=== PATIENT | female | born 1980 | race Caucasian/White ===

== ENCOUNTER 2023-08-06 21:09 | Emergency (ER) | payer BC, SELFPAY ==
[2023-08-06 21:11] VITALS: BP 154/101
[2023-08-06 21:33] LABS: % Basophils 0.7 % (0-2); % Eosinophils 1.9 % (0-6); % Immature Granulocytes 0.7 % (0-0.5); % Lymphocytes 36.6 % (20.5-51.1); % Monocytes 10.6 % (1.7-9.3); % Neutrophils 49.5 % (42.2-75.2); Absolute Basophils 0.1 10^3/uL (0-0.2); Absolute Eosinophils 0.2 10^3/uL (0-0.7); Absolute Immature Granulocytes 0.1 10^3/uL (0-0.05); Absolute Lymphocytes 3.3 10^3/uL (1.2-3.4); Absolute Neutrophils 4.5 10^3/uL (1.4-6.5); Hematocrit 38.6 % (37.0-47.0); Mean Corp Hgb Conc. 36.3 g/dL (33.0-37.0); Mean Corpuscular Hgb 30.3 pg (27.0-31.0); Mean Corpuscular Volume 83.5 fL (81.0-99.0); Mean Platelet Volume 9.6 fL (7.4-10.4); Nucleated Red Blood Cells % 0 %; Platelet Count 193 10^3/uL (130-400); Red Blood Cell Count 4.62 10^6/uL (4.20-5.40); Red Cell Dist. Width 12.4 % (11.5-14.5)
[2023-08-06 21:50] LABS: HCG, Serum Qualitative Screen Negative
[2023-08-06 22:01] LABS: ALT (SGPT) 44 U/L (0-35); AST (SGOT) 35 U/L (14-36); Albumin 4.6 g/dl (3.5-5.0); Alkaline Phosphatase 59 U/L (38-126); Blood Urea Nitrogen 28 mg/dl (7-17); Calcium 9.9 mg/dl (8.4-10.2); Carbon Dioxide 25 mmol/L (22-30); Glucose 91 mg/dl (70-99); Total Bilirubin 0.8 mg/dl (0.2-1.3); Total Protein 7.2 g/dl (6.3-8.2); eGFR 52.98
[2023-08-06 22:17] LABS: Potassium 4.4 mmol/L (3.5-5.1); Sodium 135 mmol/L (135-145)
[2023-08-06 22:18] LABS: Chloride 101 mmol/L (98-107)
--- NOTE | 2023-08-07 00:03 | ED.GENMED ---
History of Present Illness
General
Chief Complaint: Headache
Source: patient
Exam Limitations: none
Time Seen by Provider: 08/06/23 23:29
Travel History
Have you had any contact with someone who has COVID-19?: No
Do you have any symptoms of coronavirus? Fever > 100 degrees, chills, cough, shortness of breath, sore throat, loss of taste or smell, muscle aches, or headache?: No
History of Present Illness
History of Present Illness:
This is a 43 year old female that comes in with c/o Hypertension. States that last night she started to feel like her BP was elevated. States that today she started with a headache and had pressure in the back of her head. States that it felt like a
migraine so she took her migraine medication. States that her headache went away a little but she was worried about her BP. States that her fingers and toes felt a little numb. States that she also had some mid chest discomfort, dizziness and
nausea. Denies any fever, chills, SOB, abd pain, vomiting, diarrhea, urinary burning.
Past History
Past History
ED Past Medical History: HTN, Hypercholesterolemia, Psychiatric (Bipolar) and Other (Migraine)
ED Past Surgical History: and Gynecological (Uterine tumor removed)
Social History
Tobacco: Former smoker
Alcohol: None
Personal:
Living: with family
Review of Systems
Review of Systems
All Other Systems: ROS reviewed and negative except as documented in HPI and ROS
Constitutional: Reports no symptoms; Denies fever or chills
EENT: Reports no symptoms
Respiratory: Reports no symptoms; Denies cough or trouble breathing
Cardiac: Reports chest pain
ABD/GI: Reports nausea; Denies abdominal pain, vomiting or diarrhea
: Reports no symptoms; Denies dysuria, frequency or urgency
Musculoskeletal: Reports no symptoms
Skin: Reports no symptoms
Neurological: Reports dizzy and headache
Psychiatric: Reports no symptoms
Phy Exam
General Physical Exam
General Presentation: well appearing and no apparent distress
General age: appears stated age
General Skin: warm and dry
General Habitus: normal
General Mental: alert
General Hydration: appears well hydrated
ENT Exam
ENT Exam: TM's normal, pharynx normal and neck supple
Eye Exam
Eye Exam: EOMI
Cardiovascular Exam
Cardiovascular Exam: regular rate/rhythm, no edema and normal peripheral pulses
Pulmonary Exam
Pulmonary Exam: lungs clear, no respiratory distress, no rales, chest non tender, no crackles, no rhonchi, no wheezing and no cough
Gastrointestinal Exam
Gastrointestinal Exam: normal bowel sounds, non tender, soft, no organomegaly, no pulsatile mass and non distended
Musculoskeletal Exam
Musculoskeletal Exam: full ROM and no edema
Skin Exam
Skin Exam: normal color, warm/dry, no rash and no petechia
Psychiatric Exam
Psychiatric Exam: normal mood/affect
Course
Orders/Labs/Results
Orders:
Orders
08/06/23 21:14
Test Result ONCE
08/06/23 21:24
Complete Blood Count/With Diff Urgent
Comprehensive Metabolic Panel Urgent
HCG, Serum Qualitative Screen Urgent
08/07/23 00:02
0.9% Sodium Chloride 1000 ml [Nss] 1,000 ml IV BOLUS
Acetaminophen 1000MG/100Ml [Ofirmev] 1,000 mg in 100 ml IV ONCE
Acetaminophen IV Indication:: ED Narcotic Naive Pt-ONCE
08/07/23 00:03
Ondansetron Injectable [Zofran] 4 mg IV NOW STA
08/07/23 00:08
Electrocardiogram (*1) Urgent
Reason for Study: Chest Pain
EKG- Treatment ONCE
08/07/23 00:30
Troponin I Urgent
Abnormal Lab Results
08/06/23
21:24
Abs Immat Gran (auto) 0.1 H 10^3/uL
(0-0.05)
Absolute Monos (auto) 1.0 H 10^3/uL
(0.1-0.6)
Immature Gran % 0.7 H %
(0-0.5)
Monocytes % 10.6 H %
(1.7-9.3)
BUN 28 H mg/dl
(7-17)
Creatinine 1.3 H mg/dL
(0.6-1.0)
ALT 44 H U/L
(0-35)
08/06/23 21:24
08/06/23 21:24
Dehydration. ALT slightly elevated. HCG negative. Troponin <0.012,
Vital Signs
Initial and Last Documented VS:
Initial Vital Signs
Temp Pulse Resp BP Pulse Ox
98.1 F 85 16 154/101 98
08/06/23 21:11 08/06/23 21:11 08/06/23 21:11 08/06/23 21:11 08/06/23 21:11
Last Documented Vital Signs
Temp Pulse Resp BP Pulse Ox
98.1 F 78 19 144/94 97
08/06/23 21:11 08/07/23 00:26 08/07/23 00:26 08/07/23 00:26 08/07/23 00:26
MDM/Problems Addressed
Differential Diagnosis Includes:
Hypertension. Migraine
MDM/Problems Addressed:
This is a 43 year old female that comes in with c/o hypertension. States that she took her Losatin this morning. States that this started last night and know she has pressure in the back of her head with numbness in her fingers and toes.
Will get labs, Medicated for headache pain and treat BP as needed.
Back into see patient. States that she is feeling better. BP is 135/87. Encouraged patient to increase her water intake. Use her Migraine medication as needed. Follow up with her PCP for recheck on her blood pressure. Return with any concerns.
Chronic conditions affecting care: HTN and Other (Migraine)
Acute Exacerbation and/or Progression of Chronic Illness: HTN and Other (Migraines)
*Pulse Oximetry
Patient hypoxic: no
*EKG
Interpreted by ED Provider?: Yes
Heart Rate: 64
Rate: normal
Rhythm: sinus
Oketo: normal axis
Interval: normal interval
QRS Pattern: normal QRS
Ischemia: no ischemia
*Chair Finisher Interpretation
Rate: normal
Heart Rate: 72
Rhythm: sinus
*Critical Care Note
Total Time (30-74mins, 75-104mins- exclusive of procedures): Not Applicable
ED Attending Note
-
Portions of this chart may have been created with voice recognition software.� Occasional wrong word or��sound alike� substitutions may have occurred due to the inherent limitations of voice recognition software.
Discharge Plan
Departure
Patient Disposition: Home (Routine Discharge)
Date of Disposition: 08/07/23
Time of Disposition: 01:50
Patient with high blood pressure during this ER visit?: Yes
Condition: Good
Covid-19: Not Applicable
Discharge Problem:
Migraine, Hypertension
Instructions: Migraines (DC), BLOOD PRESSURE
Prescriptions:
No Action
lamotrigine [Lamictal] 200 mg Tablet
400 mg PO DAILY
losartan 25 mg tablet
25 mg PO DAILY Qty: 30 0RF
Referrals:
Jaycee Lara CRNP [Family Provider] - Follow up in 2-3 days
Activity Restrictions/Additional Instructions:
As discussed, your blood work shows you are dehydrated. Please increase your water intake to 8-8oz glasses daily. Your BP has come down on its own. Please follow up with your family doctor for recheck. Please sit for 5 min with your feet flat on the
floor and arm level with your chest when you take your BP. Follow up with the family doctor for recheck. Use your Medication for your Migraine as needed. IF YOU HAVE ANY OTHER CONCERNS PLEASE RETURN TO THE EMERGENCY ROOM.
Interventions
Interventions:
*Risk Screen - Suicide Last Done: 08/06/23 21:11
*General Assessment Last Done: 08/06/23 21:11
*Neglect/Abuse Screening Last Done: 08/06/23 21:11
ED- Fall Risk Assessment Last Done: 08/07/23 00:39
*ED COVID-19 Vaccine History Last Done: 08/06/23 21:11
ED- Neurological Assessment Last Done: 08/07/23 00:39
Discharge Date and Time
Print Language: YORUBA
[2023-08-07 00:25] VITALS: BMI 37.4
[2023-08-07 00:26] VITALS: BP 144/94
[2023-08-07] MEDS: NSS 1000 IV (00:32)
[2023-08-07] MEDS: OFIRMEV 100 IV (00:32)
[2023-08-07] MEDS: ZOFRAN 4 MG IV (00:33)
[2023-08-07 01:04] LABS: Troponin I < 0.012 ng/ml
[2023-08-07 01:49] VITALS: BP 135/87
== END 2023-08-07 02:07 | disposition home or self-care (01) ==
LOC: EMR 21:09
PROVIDERS: Clinical Nurse Specialist Family Health; Emergency Medicine; EMERGENCY PHYSICIAN Student in an Organized Health Care Education/Training Program; FAMILY PHYSICIAN Registered Nurse
DX: G43.909 Migraine, unspecified, not intractable, without status migrainosus (principal); I10 Essential (primary) hypertension; E78.00 Pure hypercholesterolemia, unspecified; F31.9 Bipolar disorder, unspecified; Z87.891 Personal history of nicotine dependence; E86.0 Dehydration
CPT/HCPCS: 99283; 96374; 96375; 96361; 80053; 84484; 84703; 85025; 93005

== ENCOUNTER 2023-12-08 10:47 | Emergency (ER) | payer BC, SELFPAY ==
[2023-12-08 10:55] VITALS: BP 161/94
[2023-12-08 12:01] LABS: % Basophils 0.5 % (0-2); % Eosinophils 0.8 % (0-6); % Immature Granulocytes 0.6 % (0-0.5); % Lymphocytes 13.3 % (20.5-51.1); % Monocytes 10.9 % (1.7-9.3); % Neutrophils 73.9 % (42.2-75.2); Absolute Eosinophils 0.1 10^3/uL (0-0.7); Absolute Immature Granulocytes 0.1 10^3/uL (0-0.05); Absolute Lymphocytes 1.1 10^3/uL (1.2-3.4); Absolute Monocytes 0.9 10^3/uL (0.1-0.6); Absolute Neutrophils 6.2 10^3/uL (1.4-6.5); Hemoglobin 15.6 g/dL (12.0-16.0); Mean Corp Hgb Conc. 36.3 g/dL (33.0-37.0); Mean Corpuscular Hgb 31.5 pg (27.0-31.0); Mean Corpuscular Volume 86.9 fL (81.0-99.0); Mean Platelet Volume 9.8 fL (7.4-10.4); Nucleated Red Blood Cells % 0 %; Platelet Count 149 10^3/uL (130-400); Red Blood Cell Count 4.95 10^6/uL (4.20-5.40); Red Cell Dist. Width 12.3 % (11.5-14.5); White Blood Cell Count 8.3 10^3/uL (4.8-10.8)
[2023-12-08 12:10] LABS: Urine Albumin 3+ (Neg - Trace); Urine Bilirubin Negative (Negative); Urine Character Slightly Cloudy (Clear); Urine Color Amber; Urine Glucose Negative (Negative); Urine Ketone Negative (Negative); Urine Leukocyte Trace (Negative); Urine Nitrite Negative (Negative); Urine Occult Blood 4+ (Negative); Urine Specific Gravity 1.015 (<1.030); Urine Urobilinogen Negative (Neg - 1+)
[2023-12-08 12:22] LABS: COVID-19 Antigen Negative (Negative)
[2023-12-08 12:26] LABS: Urine Squamous Cell 26-30 /LPF (Few)
[2023-12-08 12:30] LABS: Urine Bacteria Moderate (Negative); Urine Red Blood Cell 40-50 /HPF (0-2)
--- NOTE | 2023-12-08 12:32 | ED.GENMED ---
History of Present Illness
General
Chief Complaint: Cold/Flu/URI Symptoms
Source: patient
Time Seen by Provider: 12/08/23 11:21
History of Present Illness
History of Present Illness:
43-year-old female presents to the emergency room complaining of fever, chills, cough. She is also had nausea. Patient has a history of hematuria in the past. She states this occurred when she had a fever. She was seen by nephrology but does not
recall any specific diagnosis. Patient does have some low back pain but it seems to be proportional to muscle aches throughout her body. No dysuria or frequency.
Past History
Past History
ED Past Medical History: HTN, Hypercholesterolemia, Psychiatric (Bipolar) and Other (Migraine)
ED Past Surgical History: and Gynecological (Uterine tumor removed)
Social History
Tobacco: Former smoker
Alcohol: None
Personal:
Living: with family
Phy Exam
Physical Exam
Physical Exam:
General: Awake, Alert, Oriented X3. No acute distress.
Vitals: Personally repeated the patient's temperature and it is 100.9 orally
Head: Atraumatic
Eyes: Pupils equal, EOMI
Throat: Airway intact, no exudates
Neck: Trachea midline
Lungs: Clear and equal b/l
Heart: Regular rate, no murmurs
Abd: Soft, Nontender, No pulsatile mass
Back: No CVA tenderness to percussion
Neuro: Nonfocal
Skin: Warm, dry, no rash
Extremities: pulses equal b/l, no edema
Course
Orders/Labs/Results
Orders:
Orders
12/08/23 11:37
Urinalysis Reflex To Culture Urgent
Date Specimen was Collected: 12/08/23
Time Specimen was Collected: 11:34
Urine Microscopic Reflex Cult Urgent
Urine Culture Urgent
JASMIN Source: U
Specimen Description:
Date Specimen was Collected: 12/08/23
Time Specimen was Collected: 11:34
12/08/23 11:48
COVID-19 Antigen Urgent
Source: Nasal Swab
Complete Blood Count/With Diff Urgent
Comprehensive Metabolic Panel Urgent
Influenza A+B Rapid Molecular Urgent
JASMIN Source: Nasal Swab
Specimen Description:
12/08/23 12:31
Acetaminophen [Tylenol] 1,000 mg PO NOW STA
CR Chest - 2 Views Urgent
Comment:
Reason For Exam: cough, fever
12/08/23 13:54
0.9% Sodium Chloride 1000 ml [Nss] 1,000 ml IV BOLUS
Abnormal Lab Results
12/08/23 12/08/23
11:37 11:48
MCH 31.5 H pg
(27.0-31.0)
Abs Immat Gran (auto) 0.1 H 10^3/uL
(0-0.05)
Absolute Lymphs (auto) 1.1 L 10^3/uL
(1.2-3.4)
Absolute Monos (auto) 0.9 H 10^3/uL
(0.1-0.6)
Immature Gran % 0.6 H %
(0-0.5)
Lymphocytes % 13.3 L %
(20.5-51.1)
Monocytes % 10.9 H %
(1.7-9.3)
Carbon Dioxide 20 L mmol/L
(22-30)
BUN 34 H mg/dl
(7-17)
Creatinine 1.9 H mg/dL
(0.6-1.0)
Glucose 109 H mg/dl
(70-99)
Ur Occult Blood Reflex 4+ A
(Negative)
Leukocyte Esterase Rfl Trace A
(Negative)
Urine RBC 40-50 A /HPF
(0-2)
Urine WBC (Reflex) 11-15 A /HPF
(0-5)
Urine Bacteria (Reflex) Moderate A
(Negative)
Urine Albumin (Reflex) 3+ A
(Neg - Trace)
12/08/23 11:48
12/08/23 11:48
Vital Signs
Initial and Last Documented VS:
Initial Vital Signs
Temp Pulse Resp BP Pulse Ox
99.5 F 127 20 161/94 98
12/08/23 10:55 12/08/23 10:55 12/08/23 10:55 12/08/23 10:55 12/08/23 10:55
Last Documented Vital Signs
Temp Pulse Resp BP Pulse Ox
99.5 F 127 20 129/82 97
12/08/23 10:55 12/08/23 10:55 12/08/23 10:55 12/08/23 14:18 12/08/23 14:19
MDM/Problems Addressed
Differential Diagnosis Includes:
Viral syndrome, pneumonia, acute bronchitis
MDM/Problems Addressed:
Patient presents with fever, chills, cough low back pain. Overall symptoms seem most because of the viral illness. Chest x-ray my review some subtle right lower lobe changes. Will cover with doxycycline for potential bacterial infection. Patient
does have some hematuria. She has had this in the past for which he saw nephrology. Creatinine is 1.9. Previous measurements were in the 1.3 range. The patient does not require hospitalization recommend outpatient follow-up with nephrology. I
provided the contact information for Dr. Robison. She could also follow-up with nephrology she is seen in the past.
*Radiology
Radiology exam reviewed: preliminary read by ED provider (Mild right lower lobe infiltrate on my review of the chest x-ray)
*Pulse Oximetry
Patient hypoxic: no
*Critical Care Note
Total Time (30-74mins, 75-104mins- exclusive of procedures): Not Applicable
ED Attending Note
-
Portions of this chart may have been created with voice recognition software.� Occasional wrong word or��sound alike� substitutions may have occurred due to the inherent limitations of voice recognition software.
Discharge Plan
Departure
Patient Disposition: Home (Routine Discharge)
Date of Disposition: 12/08/23
Time of Disposition: 14:01
Patient with high blood pressure during this ER visit?: Yes
Condition: Good
Discharge Problem:
Fever, Community acquired bacterial pneumonia
Instructions: Pneumonia, Adult ED, BLOOD PRESSURE
Prescriptions:
New
doxycycline hyclate 100 mg capsule
100 mg PO BID 7 Days Qty: 14 0RF
No Action
lamotrigine [Lamictal] 200 mg Tablet
400 mg PO DAILY
losartan 25 mg tablet
25 mg PO DAILY Qty: 30 0RF
Referrals:
Cristhian Brush DO [Active] -
Jaycee Lara CRNP [Family Provider] -
Activity Restrictions/Additional Instructions:
Your blood work shows your kidney test (creatinine) is a bit elevated. You should follow up with a cook vegetable for this and the blood in your urine. I have given you the contact info for our nephrologists. I have sent a prescription for an
antibiotic to cover for pneumonia. Return if you feel you are getting worse.
Interventions
Interventions:
*Risk Screen - Suicide Last Done: 12/08/23 11:57
*Neglect/Abuse Screening Last Done: 12/08/23 11:57
ED- Pulmonary Assessment Last Done: 12/08/23 11:57
Discharge Date and Time
Print Language: MONGOLIAN
[2023-12-08] MEDS: TYLENOL 1000 MG PO (12:39)
[2023-12-08 13:00] VITALS: BMI 37.2
[2023-12-08 13:14] LABS: ALT (SGPT) 26 U/L (0-35); AST (SGOT) 26 U/L (14-36); Albumin 4.7 g/dl (3.5-5.0); Alkaline Phosphatase 48 U/L (38-126); Blood Urea Nitrogen 34 mg/dl (7-17); Calcium 9.3 mg/dl (8.4-10.2); Carbon Dioxide 20 mmol/L (22-30); Chloride 102 mmol/L (98-107); Glucose 109 mg/dl (70-99); Potassium 4.3 mmol/L (3.5-5.1); Sodium 137 mmol/L (135-145); Total Bilirubin 1.2 mg/dl (0.2-1.3); Total Protein 7.3 g/dl (6.3-8.2)
[2023-12-08] MEDS: NSS 1000 IV (14:16)
[2023-12-08 14:18] VITALS: BP 129/82
[2023-12-08 15:22] VITALS: BP 143/90
== END 2023-12-08 15:26 | disposition home or self-care (01) ==
LOC: EMR 10:47
PROVIDERS: EMERGENCY PHYSICIAN Emergency Medicine; FAMILY PHYSICIAN Registered Nurse
DX: J15.9 Unspecified bacterial pneumonia (principal); R50.9 Fever, unspecified; M54.50 Low back pain, unspecified; R31.9 Hematuria, unspecified; Z11.52 Encounter for screening for COVID-19; I10 Essential (primary) hypertension; F31.9 Bipolar disorder, unspecified; G43.909 Migraine, unspecified, not intractable, without status migrainosus; E78.00 Pure hypercholesterolemia, unspecified; Z87.891 Personal history of nicotine dependence
CPT/HCPCS: 99284; 96360; 71046; 80053; 81003; 81015; 85025; 87086; 87502; 87811